=== PATIENT | male | born 1950 | race Caucasian/White ===

== ENCOUNTER 2016-11-14 09:00 | Day surgery (SDC) | payer OTHER ==
[~2016-11-14] VITALS: Ht 193 cm; Wt 104.0 kg
[~2016-11-14 09:00] MED LIST: ADULT LOW DOSE81 M1 PO; ASCORBIC ACID100 MG PO; CARDIZEM CD360 MG PO; CELECOXIB200 MG PO; CENTRUM SILVER1 EAC3 PO; COZAAR100 MG PO; CRESTOR5 MG PO; FENOFIBRATE160 M1 PO; FISH OIL CONCE1 EAC1 PO; FLECAINIDE ACET50 MG PO; GEMFIBROZIL600 MG PO; GLUCOSAMINE1000 MG PO; NAPROSYN500 MG PO; NIASPAN,SLO-NI500 MG PO; PREVACID 24HR15 MG PO; TAZTIA XT360 MG PO; TESSALON200 MG PO; TORADOL10 MG PO; VALIUM5 MG PO; XARELTO20 MG PO
== END 2016-11-14 11:30 | disposition home or self-care (01) ==
LOC: CATH 09:00
PROC: 5A2204Z Restoration of Cardiac Rhythm, Single (ICD-10-PCS; principal; 2016-11-14)
DX: I48.1 Persistent atrial fibrillation (principal); I48.92 Unspecified atrial flutter; I11.9 Hypertensive heart disease without heart failure; G47.33 Obstructive sleep apnea (adult) (pediatric); E66.9 Obesity, unspecified; Z68.27 Body mass index [BMI] 27.0-27.9, adult; E78.2 Mixed hyperlipidemia; Z79.01 Long term (current) use of anticoagulants; Z87.891 Personal history of nicotine dependence
CPT/HCPCS: 93005